=== PATIENT | female | born 1990 | race Two or more races ===

== ENCOUNTER 2017-08-20 09:25 | Emergency (ER) | payer OTHER ==
[2017-08-20 09:36] VITALS: BMI 23.3
[2017-08-20] MEDS ORDERED: ACETAMINOPHEN 325 MG TABLET (FP) PO ONE (09:39)
[2017-08-20] MEDS ORDERED: SODIUM CHLORIDE 1,000 ML IV STA (11:04)
--- NOTE | 2017-08-20 11:28 | PDOC ---
History of Present Illness - General Chief Complaint: Pain Stated Complaint: PAIN Time Seen by Provider: 08/20/17 10:14 History Source: Patient Exam Limitations: No Limitations - History of Present Illness Initial Comments: 08/20/17 11:22 Patient is a 26-year-old female, history of Hodgkin's lymphoma stage IIB in November 2014, anemia. Patient presents with left upper quadrant pain radiating to left upper back when she takes a deep breath. Patient reports, "it feels like spleen pain". Patient reports having cough and cold-like symptoms for 1 month tomorrow has been taking [id number] TheraFlu for symptoms. Current temperature 101.8. LMP August 10. No flu shot daughter with similar symptoms and cough. Patient denies taking other medication. Past Medical History: Denies. Allergies: Zofran Medications: None Family History: Non-contributory Social History: Denies smoking, alcohol use, or IVDU Vital signs on arrival are notable for pulse of 119, temp 101.8. Review of Systems GENERAL/CONSTITUTIONAL: Fever. No weakness. No weight change. HEAD, EYES, EARS, NOSE AND THROAT: No change in vision. No ear pain or discharge. Initial sore throat resolved CARDIOVASCULAR: Left lateral chest pain and shortness of breath radiating to left upper back. RESPIRATORY: Nonproductive cough, wheezing, or hemoptysis. GASTROINTESTINAL: No nausea, vomiting, diarrhea or constipation. No rectal bleeding. GENITOURINARY: No dysuria, frequency, or change in urination. MUSCULOSKELETAL: No joint or muscle swelling or pain. No neck or back pain. SKIN AND BREASTS: Pale, No rash or easy bruising. NEUROLOGIC: No headache, vertigo, loss of consciousness, or loss of sensation. PSYCHIATRIC: No depression or anxiety. ENDOCRINE: No increased thirst. No abnormal weight change. HEMATOLOGIC/LYMPHATIC: No anemia, easy bleeding, or history of blood clots. ALLERGIC/IMMUNOLOGIC: No hives or skin allergy. No latex allergy. Physical Exam: GENERAL: The patient is awake, alert, and fully oriented, in no acute distress. HEAD: Normal with no signs of trauma. EYES: Pupils equal, round and reactive to light, extraocular movements intact, sclera anicteric, conjunctiva clear. ENT: Ears normal, nares patent, oropharynx clear without exudates. Moist mucous membranes. No uvula deviation NECK: Normal range of motion, supple without lymphadenopathy, JVD, or masses. LUNGS: Decreased breath sounds on the left lower base, no wheezing no crackles HEART: Regular rate and rhythm, normal S1 and S2 without murmur, rub or gallop. Pain on inspiration to the left lateral torso, radiating to the left shoulder. ABDOMEN: Soft, nontender, normoactive bowel sounds. No guarding, no rebound. No masses. No bruising or abrasions MUSCULOSKELETAL: Normal range of motion, no edema. No clubbing or cyanosis. No cords, erythema, or tenderness. No CVA Tenderness with fist. NEUROLOGICAL: Cranial nerves II through XII grossly intact. Normal speech, normal gait. PSYCH: Normal mood, normal affect. SKIN: Warm, Dry, normal turgor, pale, no rashes or lesions noted. 08/20/17 19:16 Past History - Past Medical History Allergies/Adverse Reactions: Allergies Allergy/AdvReac Type Severity Reaction Status Date / Time ondansetron HCl Allergy Intermediate Hives Verified 08/20/17 09:26 [From Zofran (as hydrochloride)] Home Medications: Ambulatory Orders Levofloxacin [Levaquin] 750 mg PO DAILY #5 tab 08/20/17 Levofloxacin [Levaquin] 750 mg PO DAILY #5 tablet 08/21/17 Anemia: Yes Asthma: No Cancer: Yes (lymphoma 11/2014) Cardiac Disorders: No CVA: No COPD: No CHF: No Dementia: No Diabetes: No GI Disorders: No Disorders: No HTN: No Hypercholesterolemia: No Liver Disease: No Seizures: No Thyroid Disease: No - Surgical History Abdominal Surgery: No Appendectomy: No Cholecystectomy: No Orthopedic Surgery: No - Suicide/Smoking/Psychosocial Hx Smoking History: Never smoked Have you smoked in the past 12 months: No Information on smoking cessation initiated: No Hx Alcohol Use: No (RARE) Drug/Substance Use Hx: No Substance Use Type: Alcohol Hx Substance Use Treatment: No *Physical Exam - Vital Signs Last Vital Signs Temp Pulse Resp BP Pulse Ox 101.8 F H 119 H 20 102/65 100 08/20/17 09:28 08/20/17 09:28 08/20/17 09:28 08/20/17 09:28 08/20/17 09:28 ED Treatment Course - LABORATORY CBC & Chemistry Diagram: 08/20/17 12:28 08/20/17 12:04 - Medications Given in the ED: ED Medications Discontinued Medications Generic Name Dose Route Start Last Admin Trade Name Julito PRN Reason Stop Dose Admin Acetaminophen 975 mg 08/20/17 09:39 08/20/17 09:41 Tylenol - PO 08/20/17 09:40 975 mg NOW ONE Administration Medical Decision Making - Medical Decision Making 08/20/17 11:28 A/P: Patient here for evaluation of left lateral chest and back pain, cough runny nose, symptoms for one month. Had a sore throat which has since resolved. Patient reports pain when taking deep inspiration denies any use of exogenous estrogen, [place] travel, no prolonged sitting, denies any other medical history of clotting. Plan: Urinalysis, urine cultures, CBC, CMP, lipase, lactic acid, blood cultures. Chest x-ray rule out pneumonia Rapid strep 08/20/17 13:52 Laboratory Results - last 24 hr 08/20/17 08/20/17 08/20/17 11:23 11:25 11:25 WBC Corrected WBC (auto) RBC Hgb Hct MCV MCH MCHC RDW Plt Count MPV Neutrophils % Lymphocytes % Monocytes % Eosinophils % Basophils % Sodium Potassium Chloride Carbon Dioxide Anion Gap BUN Creatinine Creat Clearance w eGFR Random Glucose Lactic Acid 0.8 Calcium Total Bilirubin AST ALT Alkaline Phosphatase Total Protein Albumin Lipase Urine Color Yellow Urine Appearance Slcloudy Urine pH 6.0 Ur Specific [place] 1.029 Urine Protein 1+ H Urine Glucose (UA) Negative Urine Ketones Trace H Urine Blood Negative Urine Nitrite Negative Urine Bilirubin Negative Urine Urobilinogen Negative Urine WBC (Auto) 1 Urine RBC (Auto) 11 Ur Epithelial Cells Rare Urine Mucus Few Urine HCG, Qual Negative 08/20/17 08/20/17 08/20/17 12:04 12:04 12:28 WBC Cancelled 11.5 H D Corrected WBC (auto) Cancelled RBC Cancelled 3.57 L Hgb Cancelled 9.4 L Hct Cancelled 29.3 L MCV Cancelled 82.0 MCH Cancelled 26.3 D MCHC Cancelled 32.1 RDW Cancelled 13.5 D Plt Count Cancelled 374 MPV Cancelled 7.1 L Neutrophils % Cancelled 84.6 H Lymphocytes % Cancelled 9.8 D Monocytes % Cancelled 5.2 Eosinophils % Cancelled 0.2 D Basophils % Cancelled 0.2 Sodium 136 Potassium 3.9 Chloride 103 Carbon Dioxide 25 Anion Gap 8 BUN 9 Creatinine 0.6 Creat Clearance w eGFR > 60 Random Glucose 92 Lactic Acid Calcium 8.6 Total Bilirubin 0.4 D AST 12 L D ALT 22 Alkaline Phosphatase 88 Total Protein 7.8 Albumin 3.1 L Lipase 129 Urine Color Urine Appearance Urine pH Ur Specific [place] Urine Protein Urine Glucose (UA) Urine Ketones Urine Blood Urine Nitrite Urine Bilirubin Urine Urobilinogen Urine WBC (Auto) Urine RBC (Auto) Ur Epithelial Cells Urine Mucus Urine HCG, Qual Chest x-ray with left lower lobe infiltrate Rapid strep is negative. Case discussed with Dr. Alcocer. 08/20/17 14:33 Patient with left lower lobe infiltrate, we'll give Toradol 30 mg IV, azithromycin 500 mg IV and Rocephin 1 g IV. We will then reassess patient and consider admission if no improvement. 08/20/17 17:17 Patient reports that pain is increased after the tylenol and the toradol. When patient was further questioned she stated that in 2014 was told that she may have "elevated test called a d-dimer and has pain sometimes to the left posterior leg". In light of new information patient has given, will Now send patient for left lower extremity ultrasound. CTA, R/O PE. Explained to patient that this is a significant part of her medical history and she needs to disclose this information when questioned about her medical history. She stated she did not think was significant. 08/20/17 19:12 I am signing this patient out to my colleague: JOSE A Jaimes In brief, this patient is being seen in the ED for a chief complaint of: Left lateral torso pain, pain on inspiration, cough and cold like symptoms. I have completed the initial assessment interview note and have ordered: labs, strep, urinalysis, urine culture, EKG, chest x-ray, Toradol, azithromycin, Rocephin, CTA, rule out PE. I have reviewed the following results: Labs, EKG Pending results are: CTA Plan for disposition is as follows: Pending *DC/Admit/Observation/Transfer Diagnosis at time of Disposition: Pneumonia Qualifiers: Pneumonia type: due to unspecified organism Laterality: bilateral Lung location : unspecified part of lung Qualified Code(s): J18.9 - Pneumonia, unspecified organism - Discharge Dispostion Disposition: HOME Condition at time of disposition: Stable - Prescriptions Prescriptions: Levofloxacin [Levaquin] 750 mg PO DAILY #5 tab Levofloxacin [Levaquin] 750 mg PO DAILY #5 tablet - Referrals - Patient Instructions Printed Discharge Instructions: DI for Pneumonia -- Adult Additional Instructions: Please take medications as prescribed. As discussed, you must follow up with your primary care doctor THIS WEEK for continued evaluation and to discuss a repeat CT scan. If you develop any new shortness of breath chest pain, palpitations, fever, chills, vomiting, diarrhea, or any new or worsening symptoms, please return to the ER. - Post Discharge Activity
[2017-08-20 11:41] LABS: URINE APPEARANCE SLCLOUDY; URINE BILIRUBIN NEGATIVE (NEGATIVE); URINE BLOOD NEGATIVE (NEGATIVE); URINE COLOR YELLOW; URINE GLUCOSE (UA) NEGATIVE (NEGATIVE); URINE KETONE TRACE (NEGATIVE); URINE NITRITE NEGATIVE (NEGATIVE); URINE UROBILINOGEN NEGATIVE mg/dL (0.2-1.0)
[2017-08-20 11:42] LABS: URINE PROTEIN 1+ (NEGATIVE)
[2017-08-20 11:56] LABS: URINE MUCUS FEW; URINE RBC 11; URINE WBC 1
[2017-08-20 12:37] LABS: ALBUMIN 3.1 g/dl (3.4-5.0); ALK PHOS 88 U/L (45-117); ANION GAP 8 (8-16); BILIRUBIN,TOTAL 0.4 mg/dL (0.2-1.0); CALCIUM 8.6 mg/dL (8.5-10.1); CO2 25 mmol/L (21-32); CREATININE 0.6 mg/dL (0.55-1.02); GLUCOSE,RANDOM 92 mg/dL (74-106); SGOT/AST 12 U/L (15-37); SGPT/ALT 22 U/L (12-78); TOT PROT 7.8 g/dl (6.4-8.2)
[2017-08-20 13:15] LABS: BASOPHIL 0.2 % (0-2.0); EOSINOPHIL 0.2 % (0-4.5); MCH 26.3 pg (25.7-33.7); MCHC 32.1 g/dl (32.0-36.0); MEAN PLT VOLUME 7.1 fl (7.5-11.1); NEUTROPHILS 84.6 % (42.8-82.8); PLATELET COUNT 374 K/MM3 (134-434); RDW 13.5 % (11.6-15.6); WHITE BLOOD COUNT 11.5 K/mm3 (4.0-10.0)
[2017-08-20] MEDS ORDERED: KETOROLAC TROMETHAMINE 30 MG/1 ML VIAL IVPUSH ONE (14:30)
[2017-08-20] MEDS ORDERED: SODIUM CHLORIDE 0.9% 1000 ML INFUS.BAG IV ONE (14:31)
[2017-08-20] MEDS ORDERED: CEFTRIAXONE 1,000 MG in DEXTROSE 5%-WATER - 50 ML IVPB ONE (14:32)
[2017-08-20] MEDS ORDERED: AZITHROMYCIN IVPB 500 MG in DEXTROSE 5%-WATER - 250 ML IVPB ONE (14:32)
[2017-08-20] MEDS ORDERED: KETOROLAC TROMETHAMINE 60 MG/2 ML VIAL ONE (14:58)
[2017-08-20 16:58] LABS: URINE LEUK ESTERASE Negative (NEGATIVE)
[2017-08-20 19:01] VITALS: BP 116/75; PULSE 95; TEMP 99
--- NOTE | 2017-08-20 19:29 | PDOC ---
*Physical Exam - Vital Signs Last Vital Signs Temp Pulse Resp BP Pulse Ox 99 F 95 H 18 116/75 98 08/20/17 19:01 08/20/17 19:01 08/20/17 19:01 08/20/17 19:01 08/20/17 19:01 - Physical Exam Comments: 08/20/17 19:27 Sign-out received from outgoing ER provider Andolino. Pt interviewed and examined. Ancillary studies reviewed. Awaiting CTA results. 08/20/17 20:11 CTA results: No evidence of PE. Interval right paratracheal lymph node measuring 1.2 x 0.3cm. LLL consolidation/pneumonia nad patch infiltrates in lingular segment of the DEBORAH as well as in the medial aspect of the right middle and lower lobe. 1 cm nodular opacity in the right upper lobe and juxta pleural nodular opacity in the left upper lobe measuring 1.2 cm that may represent infiltrates. Follow up CT scan in one to 2 weeks is recommended to rule out permanent nodules. Previously visualized R anterior chest wall mass with bone destruction is no longer seen. Read by: Blessing Maldonado MD Patient has close follow up with PCP. Will sent patient with imaging studies for follow up THIS WEEK and rx for Levaquin for pneumonia. Advised patient to take medication as prescribed and that she must follow up this week. Advised patient of signs and symptoms for return to ER; patient verbalized understanding and agrees to plan. ED Treatment Course - LABORATORY CBC & Chemistry Diagram: 08/20/17 12:28 08/20/17 12:04 - ADDITIONAL ORDERS Additional order review: Laboratory Results 08/20/17 08/20/17 08/20/17 12:04 11:25 11:25 Sodium 136 Potassium 3.9 Chloride 103 Carbon Dioxide 25 Anion Gap 8 BUN 9 Creatinine 0.6 Creat Clearance w eGFR > 60 Random Glucose 92 Lactic Acid Calcium 8.6 Total Bilirubin 0.4 D AST 12 L D ALT 22 Alkaline Phosphatase 88 Total Protein 7.8 Albumin 3.1 L Lipase 129 Urine Color Yellow Urine Appearance Slcloudy Urine pH 6.0 Ur Specific [place] 1.029 Urine Protein 1+ H Urine Glucose (UA) Negative Urine Ketones Trace H Urine Blood Negative Urine Nitrite Negative Urine Bilirubin Negative Urine Urobilinogen Negative Ur Leukocyte Esterase Negative Urine WBC (Auto) 1 Urine RBC (Auto) 11 Ur Epithelial Cells Rare Urine Mucus Few Urine HCG, Qual Negative 08/20/17 11:23 Sodium Potassium Chloride Carbon Dioxide Anion Gap BUN Creatinine Creat Clearance w eGFR Random Glucose Lactic Acid 0.8 Calcium Total Bilirubin AST ALT Alkaline Phosphatase Total Protein Albumin Lipase Urine Color Urine Appearance Urine pH Ur Specific [place] Urine Protein Urine Glucose (UA) Urine Ketones Urine Blood Urine Nitrite Urine Bilirubin Urine Urobilinogen Ur Leukocyte Esterase Urine WBC (Auto) Urine RBC (Auto) Ur Epithelial Cells Urine Mucus Urine HCG, Qual 08/20/17 11:06 Group A Strep Rapid Antigen - Final Throat 08/20/17 08/20/17 12:28 12:04 RBC 3.57 L Cancelled MCV 82.0 Cancelled MCHC 32.1 Cancelled RDW 13.5 D Cancelled MPV 7.1 L Cancelled Neutrophils % 84.6 H Cancelled Lymphocytes % 9.8 D Cancelled Monocytes % 5.2 Cancelled Eosinophils % 0.2 D Cancelled Basophils % 0.2 Cancelled - Medications Given in the ED: ED Medications Discontinued Medications Generic Name Dose Route Start Last Admin Trade Name Julito PRN Reason Stop Dose Admin Acetaminophen 975 mg 08/20/17 09:39 08/20/17 09:41 Tylenol - PO 08/20/17 09:40 975 mg NOW ONE Administration Sodium Chloride 1,000 mls @ 1,000 mls/hr 08/20/17 11:04 08/20/17 11:55 Normal Saline - IV 08/20/17 12:03 1,000 mls/hr ASDIR STA Administration Ceftriaxone Sodium 1,000 mg/ 50 mls @ 100 mls/hr 08/20/17 14:32 08/20/17 16: 29 Dextrose IVPB 08/20/17 15:01 100 mls/hr ONCE ONE Administration Azithromycin 500 mg/ Dextrose 250 mls @ 250 mls/hr 08/20/17 14:32 08/20/17 16 :35 IVPB 08/20/17 15:31 250 mls/hr ONCE ONE Administration Ketorolac Tromethamine 30 mg 08/20/17 14:30 08/20/17 15:42 Toradol Injection - IVPUSH 08/20/17 14:31 30 mg ONCE ONE Administration Sodium Chloride 1,000 ml 08/20/17 14:31 08/20/17 16:29 Normal Saline - IV 08/20/17 14:32 1,000 ml ONCE ONE Administration *DC/Admit/Observation/Transfer Diagnosis at time of Disposition: Pneumonia Qualifiers: Pneumonia type: due to unspecified organism Laterality: bilateral Lung location : unspecified part of lung Qualified Code(s): J18.9 - Pneumonia, unspecified organism - Discharge Dispostion Disposition: HOME Condition at time of disposition: Stable Admit: No - Prescriptions Prescriptions: Levofloxacin [Levaquin] 750 mg PO DAILY #5 tab - Referrals - Patient Instructions Printed Discharge Instructions: DI for Pneumonia -- Adult Additional Instructions: Please take medications as prescribed. As discussed, you must follow up with your primary care doctor THIS WEEK for continued evaluation and to discuss a repeat CT scan. If you develop any new shortness of breath chest pain, palpitations, fever, chills, vomiting, diarrhea, or any new or worsening symptoms, please return to the ER. - Post Discharge Activity
== END 2017-08-20 21:10 | disposition home or self-care (01) ==
LOC: JER 09:25
PROC: 3E0337Z Introduction of Electrolytic and Water Balance Substance into Peripheral Vein, Percutaneous Approach (ICD-10-PCS; principal; 2017-08-20)
PROC: 3E03329 Introduction of Other Anti-infective into Peripheral Vein, Percutaneous Approach (ICD-10-PCS; 2017-08-20)
PROC: 3E03329 Introduction of Other Anti-infective into Peripheral Vein, Percutaneous Approach (ICD-10-PCS; 2017-08-20)
PROC: 3E0333Z Introduction of Anti-inflammatory into Peripheral Vein, Percutaneous Approach (ICD-10-PCS; 2017-08-20)
DX: J18.9 Pneumonia, unspecified organism (principal); C81.90 Hodgkin lymphoma, unspecified, unspecified site; D64.9 Anemia, unspecified
CPT/HCPCS: 36415; 71020-TC; 71275-TC; 80053; 81003; 81015; 83605; 83690; 84703; 85025; 87040; 87070; 87086; 87430; 99284-25